=== PATIENT | male | born 1990 | race Caucasian/White ===

== ENCOUNTER 2016-09-09 08:58 | Emergency (ER) | payer SELFPAY ==
--- NOTE | 2016-09-09 09:42 | UC ---
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 Now can force air out of L ear. Denies significant hearing loss or pain. 3) Crusted spots on bilat elbows. On L side started a few days ago, mainly itchy and raised. On R side thinks it has been a wart that pt has been treating TID with "burning" medicine. Has been there a matter of weeks. - History of Current Complaint Chief Complaint: UCGeneralIllness Stated Complaint: EAR PAIN SKIN ISSUE SORE THROAT Time Seen by Provider: 09/09/16 09:13 Hx Obtained From: Patient Onset/Duration: Gradual Onset, Lasting Hours Cough: None Associated Signs & Symptoms: Negative: Fever, Vomiting, Rash - Allergies/Home Medications Allergies/Adverse Reactions: Allergies Allergy/AdvReac Type Severity Reaction Status Date / Time No Known Allergies Allergy Verified 09/09/16 09:07 Home Medications: Home Medications Cetirizine* [ZyrTEC 10 MG TAB*] 1 tab PO DAILY 09/09/16 [History Confirmed 09/09] Fluticasone NASAL SPRAY 50MCG* [Flonase NASAL SPRAY 50MCG*] 1 spray NASAL DAILY 09/09/16 [History Confirmed 09/09/16] PMH/Surg Hx/FS Hx/Imm Hx Previously Healthy: Yes - Surgical History Surgical History: Yes Surgery Procedure, Year, and Place: Right Knee; Femor Fracture Repair x 2. - Family History Known Family History: Positive: Hypertension - Social History Alcohol Use: Weekly Alcohol Amount: Weekends Substance Use Type: None Smoking Status (MU): Never Smoked Tobacco Review of Systems Constitutional: Negative Skin: Other - spots bilat arms Eyes: Negative ENT: Sore Throat, Ear Ache Respiratory: Negative Cardiovascular: Negative Gastrointestinal: Negative Genitourinary: Negative Motor: Negative Neurovascular: Negative Musculoskeletal: Negative Neurological: Negative Psychological: Negative All Other Systems Reviewed And Are Negative: Yes Physical Exam Triage Information Reviewed: Yes Appearance: Well-Appearing, No Pain Distress, Well-Nourished Vital Signs: Initial Vital Signs Temp 98.4 F 09/09/16 09:00 Pulse 56 09/09/16 09:00 Resp 16 09/09/16 09:00 BP 138/70 09/09/16 09:00 Pulse Ox 99 09/09/16 09:00 Vital Signs Reviewed: Yes Eye Exam: Normal, Other - PERRL Eyes: Positive: Conjunctiva Clear ENT: Positive: Pharyngeal erythema, TMs normal - R TM normal, Other: - L TM has small hole at approx 6 o'clock, no drainage or erythema. Negative: TM bulging, TM dull, TM red Dental Exam: Normal Neck exam: Normal Neck: Positive: Supple, Nontender, No Lymphadenopathy Respiratory Exam: Normal Respiratory: Positive: Chest non-tender, Lungs clear, Normal breath sounds, No respiratory distress, No accessory muscle use Cardiovascular Exam: Normal Cardiovascular: Positive: RRR, No Murmur Musculoskeletal Exam: Normal Neurological Exam: Normal Neurological: Positive: Alert Psychological Exam: Normal Skin Exam: Other - 1.5cm round raised lesion R elbow/upper arm with raised edges , crusting in the center. L elbow excoriated scabbed, dry lesion Throat Pain/Nasal Course/Dx - Differential Dx/Diagnosis Provider Diagnoses: Traumatic L TM rupture. pharyngitis. L elbow common wart. R elbow tinea Discharge - Discharge Plan Condition: Stable Disposition: HOME Patient Education Materials: Ruptured Eardrum (ED), Pharyngitis (ED), Tinea Corporis (ED), Common Wart (ED) Referrals: Nathalie Epperson MD [Medical Doctor] - Quique Elizondo MD [Medical Doctor] - 2 Weeks Additional Instructions: Follow up with your primary care in 7-10 days to make sure your eardrum heals. Follow up with a image archivist if treatment for 1-2 weeks does not resolve the fungal infection and the wart (keep using your [id number] wart treatment). If you continue to have a sore throat after a week, return here or see your primary care provider.
== END 2016-09-09 09:51 | disposition home or self-care (01) ==
LOC: UCEAST 08:58
DX: S09.22XA Traumatic rupture of left ear drum, initial encounter (principal); W50.0XXA Accidental hit or strike by another person, initial encounter; Y93.71 Activity, boxing; Y92.9 Unspecified place or not applicable; J02.9 Acute pharyngitis, unspecified; B07.8 Other viral warts; B35.4 Tinea corporis
CPT/HCPCS: 87651; 99202; G0463